=== PATIENT | female | born 1995 | race African-American/Black ===

== ENCOUNTER 2017-04-16 17:36 | Emergency (ER) | payer OTHER ==
[2017-04-16 17:57] VITALS: BP 131/89; PULSE 70; TEMP 98.4
--- NOTE | 2017-04-16 18:37 | PDOC ---
History of Present Illness - General History Source: Patient Exam Limitations: No Limitations - History of Present Illness Initial Comments: 04/16/17 19:38 The patient is 21 year old female, with significant past medical history of recurrent yeast infections, who presents to the emergency room with vaginal discharge and intermittent pelvic pain. The patient states that the vaginal discharge is white. She notes that she has frequent yeast infections and her ENVIRONMENTAL ENGINEERING AIDE has told her it is because her pH is off balance. She was concerned today because she was spotting, which is not typical of her yeast infections. Her LMP was 03/29/17. She is sexually active, but does not use any form of control including condoms. Denies fever, chills, nausea, vomiting. Denies abdominal pain. Allergies: none Surgical Hx: tonsillectomy Social: no alcohol use. No drug use. No tobacco use. ENVIRONMENTAL ENGINEERING AIDE: Dr. Mills <Lyn Baer - Last Filed: 04/16/17 19:38> <Monica Pizarro - Last Filed: 04/16/17 20:47> - General Chief Complaint: Vaginal Sxs Stated Complaint: abd pain Time Seen by Provider: 04/16/17 17:51 Past History <Lyn Baer - Last Filed: 04/16/17 19:38> - Past Medical History Thyroid Disease: No - Psycho/Social/Smoking Cessation Hx Anxiety: No Suicidal Ideation: No Smoking History: Never smoked Have you smoked in the past 12 months: No Information on smoking cessation initiated: No Hx Alcohol Use: No Drug/Substance Use Hx: No Substance Use Type: None <Monica Pizarro - Last Filed: 04/16/17 20:47> - Past Medical History Allergies/Adverse Reactions: Allergies Allergy/AdvReac Type Severity Reaction Status Date / Time No Known Allergies Allergy Verified 04/16/17 17:56 Home Medications: Ambulatory Orders Nitrofurantoin Monohyd/M-Cryst [Macrobid -] 100 mg PO BID #14 capsule 04/16/17 Review of Systems - Review of Systems Able to Perform ROS?: Yes Comments:: 04/16/17 19:38 CONSTITUTIONAL: Absent: fever, no chills, no fatigue EYES: Absent: visual changes ENT: Absent: ear pain, no sore throat CARDIOVASCULAR: Absent: chest pain, no palpitations RESPIRATORY: Absent: cough, no SOB GI: Absent: no nausea, no vomiting, no constipation, no diarrhea GENITOURINARY: Present: +vaginal discharge, vaginal spotting, intermittent pelvic pain Absent: dysuria, no frequency, no hematuria MUSCULOSKELETAL: Absent: back pain, no arthralgia, no myalgia SKIN: Absent: rash NEURO: Absent: headache <KeyurLyn - Last Filed: 04/16/17 19:38> *Physical Exam - Vital Signs Last Vital Signs Temp Pulse Resp BP Pulse Ox 98.4 F 70 18 131/89 100 04/16/17 17:40 04/16/17 17:40 04/16/17 17:40 04/16/17 17:40 04/16/17 17:40 - Physical Exam Comments: 04/16/17 19:39 GENERAL: Well-appearing, well-nourished. No apparent distress. HEENT: Normocephalic, atraumatic. PERRL, EOM intact. CARDIOVASCULAR: Normal S1, S2. Regular rate and rhythm. PULMONARY: Clear to auscultation bilaterally. ABDOMEN: Soft, non-distended, non-tender. EXTREMITIES: Normal ROM in all four extremities. No gross deformities. SKIN: Warm, dry. No rash NEUROLOGICAL: No focal neurological deficits. <GustaboarthurLyn - Last Filed: 04/16/17 19:38> - Vital Signs Last Vital Signs Temp Pulse Resp BP Pulse Ox 98.4 F 70 18 131/89 100 04/16/17 17:40 04/16/17 17:40 04/16/17 17:40 04/16/17 17:40 04/16/17 17:40 <Monica Pizarro - Last Filed: 04/16/17 20:47> ED Treatment Course - ADDITIONAL ORDERS Additional order review: Laboratory Results 04/16/17 04/16/17 18:59 18:41 Urine Color Yellow Urine Appearance Cloudy Urine pH 7.0 Urine Protein Negative Urine Glucose (UA) Negative Urine Ketones Negative Urine Blood 1+ H Urine Nitrite Negative Urine Bilirubin Negative Urine Urobilinogen Negative Ur Leukocyte Esterase 3+ H Urine HCG, Qual Negative <KeyurLyn - Last Filed: 04/16/17 19:38> *DC/Admit/Observation/Transfer - Attestations Scribe Attestion: 04/16/17 19:39 Documentation prepared by LEENA Macdonald, acting as medical records coder for Monica Pizarro MD. <Lyn Baer - Last Filed: 04/16/17 19:38> <Monica Pizarro - Last Filed: 04/16/17 20:47> Diagnosis at time of Disposition: Urinary tract infection Qualifiers: Urinary tract infection type: site unspecified Hematuria presence: without hematuria Qualified Code(s): N39.0 - Urinary tract infection, site not specified - Discharge Dispostion Disposition: HOME Condition at time of disposition: Stable - Prescriptions Prescriptions: Nitrofurantoin Monohyd/M-Cryst [Macrobid -] 100 mg PO BID #14 capsule - Patient Instructions Printed Discharge Instructions: DI for Urinary Tract Infection (UTI) Additional Instructions: please worm picker your medications at [facility] pharmacy
[2017-04-16 19:22] LABS: URINE APPEARANCE CLOUDY; URINE BILIRUBIN NEGATIVE (NEGATIVE); URINE COLOR YELLOW; URINE GLUCOSE (UA) NEGATIVE (NEGATIVE); URINE KETONE NEGATIVE (NEGATIVE); URINE NITRITE NEGATIVE (NEGATIVE); URINE PROTEIN NEGATIVE (NEGATIVE); URINE UROBILINOGEN NEGATIVE E.U./dl (0.2-1.0)
[2017-04-16 19:23] LABS: URINE BLOOD 1+ (NEGATIVE); URINE LEUK ESTERASE 3+ (NEGATIVE)
[2017-04-16 19:25] LABS: URINE BACTERIA RARE /hpf (NONE SEEN); URINE MUCUS RARE; URINE RBC 18 /hpf (0-3); URINE WBC 147 /hpf (3-5)
[2017-04-16] MEDS ORDERED: NITROFURANTOIN MACROCRYSTAL 50 MG CAPSULE (FP) PO SCH (20:15)
[2017-04-16] MEDS ORDERED: PHENAZOPYRIDINE HCL 100 MG TABLET (FP) PO ONE (20:29)
[2017-04-16] MEDS ORDERED: IBUPROFEN 600 MG TABLET (FP) PO ONE ×2 (20:30→20:31)
[2017-04-16] MEDS ORDERED: NITROFURANTOIN MACROCRYSTAL 50 MG CAPSULE (FP) ONE (20:31)
[2017-04-16] MEDS ORDERED: PHENAZOPYRIDINE HCL 100 MG TABLET (FP) ONE ×2 (20:31→20:33)
[2017-04-16] MEDS ORDERED: FLUCONAZOLE 100 MG TABLET (UD) PO ONE (20:46)
[2017-04-16] MEDS ORDERED: FLUCONAZOLE 100 MG TABLET (UD) ONE (20:51)
== END 2017-04-16 20:55 | disposition home or self-care (01) ==
LOC: JER 17:36
DX: N39.0 Urinary tract infection, site not specified (principal)
CPT/HCPCS: 81003; 81015; 84703; 99283-25

== ENCOUNTER 2017-04-18 18:21 | Emergency (ER) | payer OTHER ==
[2017-04-18 18:28] VITALS: BP 116/72; PULSE 84; TEMP 98.2; BMI 23.3
--- NOTE | 2017-04-18 19:00 | PDOC ---
History of Present Illness - General History Source: Patient, Parent(s), Old Records Exam Limitations: No Limitations - History of Present Illness Initial Comments: 04/18/17 19:01 The patient is a 21 year old female with a significant past medical history of recurrent yeast infections, who presents to the emergency department today for further evaluation of vaginal discharge for 5 days and dysuria for 3 days. The patient states that on Monday she had clear vaginal discharge which she notes is normal to her previous yeast infections. On Monday the patient began to experience dysuria with associated spotting, itching, and burning sensation internally and externally. On Monday she presented to [facility], was diagnosed with a UTI, and sent home with antibiotics. The patient reports compliance with antibiotics but denies any alleviation of symptoms. She states that she feels like her symptoms have worsened since her initially ED visit. She states that her burning is exacerbated when wiping after urination or toweling off after shower. She denies any alleviating factors. The patient denies fever, chills, and sweats. The patient denies nausea, vomiting, and diarrhea. The patient denies chest pain, abdominal pain, and shortness of breath. PAST MEDICAL HISTORY: UTI, Yeast infections PAST SURGICAL HISTORY: Tonsillectomy FAMILY HISTORY: No pertinent history reported SOCIAL HISTORY: None reported ALLERGIES: None MEDICATIONS: Recently placed on antibiotic cycle but unsure of names and dosages <Aron Lopez - Last Filed: 04/18/17 19:01> - General History Source: Patient Exam Limitations: No Limitations <Edwige Bazzi - Last Filed: 04/18/17 19:13> - General Chief Complaint: Urinary Problem Stated Complaint: URINARY TRACT BURNING Time Seen by Provider: 04/18/17 18:23 Past History <Aron Lopez - Last Filed: 04/18/17 19:01> - Past Medical History Thyroid Disease: No - Psycho/Social/Smoking Cessation Hx Anxiety: No Suicidal Ideation: No Smoking History: Never smoked Have you smoked in the past 12 months: No Information on smoking cessation initiated: No Hx Alcohol Use: No Drug/Substance Use Hx: No Substance Use Type: None <Edwige Bazzi - Last Filed: 04/18/17 19:13> - Past Medical History Allergies/Adverse Reactions: Allergies Allergy/AdvReac Type Severity Reaction Status Date / Time No Known Allergies Allergy Verified 04/18/17 18:23 Home Medications: Ambulatory Orders Nitrofurantoin Monohyd/M-Cryst [Macrobid -] 100 mg PO BID #14 capsule 04/16/17 Metronidazole [Flagyl -] 500 mg PO BID #14 tablet 04/18/17 Phenazopyridine HCl [Pyridium] 100 mg PO BID #6 tablet 04/18/17 Review of Systems - Review of Systems Able to Perform ROS?: Yes Comments:: 04/18/17 19:01 GENERAL/CONSTITUTIONAL: No: fever, chills, weakness, loss of appetite. HEAD, EYES, EARS, NOSE AND THROAT: No: change in vision, ear pain, discharge, sore throat, throat swelling. CARDIOVASCULAR: No: chest pain, lightheadedness, palpitations, syncope RESPIRATORY: No: cough, shortness of breath, wheezing, hemoptysis, stridor. GASTROINTESTINAL: No: nausea, vomiting, abdominal cramping, diarrhea, rectal bleeding, constipation. GENITOURINARY: (+) Dysuria, itching, burning, vaginal discharge. No: hematuria, frequency, urgency, flank pain. MUSCULOSKELETAL: No: back pain, neck pain, joint pain, muscle swelling or pain SKIN: No: lesions, pallor, rash or easy bruising. NEUROLOGIC: No: headache, vertigo, paresthesias, weakness ENDOCRINE: No: unexplained weight gain or loss HEMATOLOGIC/LYMPHATIC: No: anemia, easy bleeding, swelling nodes <Aron Lopez - Last Filed: 04/18/17 19:01> *Physical Exam - Vital Signs Last Vital Signs Temp Pulse Resp BP Pulse Ox 98.2 F 84 18 116/72 99 04/18/17 18:21 04/18/17 18:21 04/18/17 18:21 04/18/17 18:21 04/18/17 18:21 - Physical Exam Comments: 04/18/17 19:02 GENERAL: The patient is in no acute distress. HEAD: Normal with no signs of trauma. EYES: PERRLA, EOMI, sclera anicteric, conjunctiva clear. ENT: Ears normal, nares patent, oropharynx clear without exudates. Moist mucous membranes. NECK: Normal range of motion, supple without lymphadenopathy, JVD, or masses. LUNGS: Breath sounds equal, clear to auscultation bilaterally. No wheezes, and no crackles. HEART:Regular rate and rhythm, normal S1 and S2 without murmur, rub or gallop. ABDOMEN: Soft, nontender, normoactive bowel sounds. No guarding, no rebound. EXTREMITIES: Normal range of motion, no edema. No clubbing or cyanosis. No erythema, or tenderness. VAGINAL: (+) Moderate volume of cream colored thin vaginal discharge. no CMT. NEUROLOGICAL: Cranial nerves II through XII grossly intact. Normal speech. No focal neurological deficits. MUSCULOSKELETAL: Back nontender to palpation, no CVA tenderness SKIN: Warm, Dry, normal turgor, no rashes or lesions noted. <Aron Lopez - Last Filed: 04/18/17 19:01> - Vital Signs Last Vital Signs Temp Pulse Resp BP Pulse Ox 98.2 F 84 18 116/72 99 04/18/17 18:21 04/18/17 18:21 04/18/17 18:21 04/18/17 18:21 04/18/17 18:21 <Edwige Bazzi - Last Filed: 04/18/17 19:13> Medical Decision Making - Medical Decision Making 04/18/17 19:00 A portion of this note was documented by scribe services under my direction. I have reviewed the details of the note, within reason, and agree with the documentation with the following case summary and management plan written by me. Nursing documentation reviewed and incorporated into medical decision making 04/18/17 19:03 21 yo F presenting to the ER again for vaginal pain, pelvic pain, burning on urination Symptoms began 4 days ago Seen at OSH where Macrobid was started Pt is concerned because she has had a large volume of vaginal discharge which is abnodmal for her No fevers, no chills No flank pain 04/18/17 19:03 On examination: no abd tenderness (+) cream, yellow discharge, moderate volume Bimanual examination: no CMT, no adnexal tenderness UA, Urine Culture pending Sent GC/Chlamydia ? [place] Will start Flagyl Will add pyridium Will ask pt to continue antibiotics pending Urine culture Clinical impression: UTI, Vaginitis 04/18/17 19:10 <Edwige Bazzi - Last Filed: 04/18/17 19:13> *DC/Admit/Observation/Transfer - Attestations Scribe Attestion: 04/18/17 19:02 Documentation prepared by Aron Lopez, acting as medical claims manager for Edwige Bazzi MD. <Aron Lopez - Last Filed: 04/18/17 19:01> - Discharge Dispostion Admit: No <Edwige Bazzi - Last Filed: 04/18/17 19:13> Diagnosis at time of Disposition: UTI (urinary tract infection) Qualifiers: Urinary tract infection type: acute cystitis Hematuria presence: with hematuria Qualified Code(s): N30.01 - Acute cystitis with hematuria Vaginitis Qualifiers: Chronicity: acute Qualified Code(s): N76.0 - Acute vaginitis - Discharge Dispostion Disposition: HOME Condition at time of disposition: Stable - Prescriptions Prescriptions: Metronidazole [Flagyl -] 500 mg PO BID #14 tablet Phenazopyridine HCl [Pyridium] 100 mg PO BID #6 tablet - Patient Instructions Printed Discharge Instructions: DI for Vaginal Discharge, DI for Urinary Tract Infection (UTI) Additional Instructions: Thank you for coming back to the ER today Please take medications as prescribed Please continue antibiotic you were given 2 days ago I have added an additional antibiotic Please call the ER on Saturday 04/21 between 7 am and 7 pm ([phone]) for your results Please monitor yourself for fevers or chills, flank pain, any new symptoms
[2017-04-18 19:07] LABS: PH,URINE 7.5 (4.5-8); URINE BILIRUBIN Negative (NEGATIVE); URINE BLOOD Trace-intact (NEGATIVE); URINE GLUCOSE (UA) Negative (NEGATIVE); URINE KETONE Trace (NEGATIVE); URINE NITRITE Negative (NEGATIVE); URINE UROBILINOGEN 2.0 E.U/dl (0.2-1.0)
[2017-04-18 19:09] LABS: URINE COLOR YELLOW; URINE LEUK ESTERASE 2+ (NEGATIVE); URINE PROTEIN 1+ (NEGATIVE)
[2017-04-18 19:17] LABS: URINE APPEARANCE SL CLOUDY
[2017-04-18 19:18] LABS: URINE BACTERIA FEW /hpf (NEGATIVE)
== END 2017-04-18 19:22 | disposition home or self-care (01) ==
LOC: FER 18:21
DX: N30.01 Acute cystitis with hematuria (principal); N76.0 Acute vaginitis
CPT/HCPCS: 36415; 81003; 81015; 84703; 87070; 87077; 87086; 87205; 87491; 87591; 99283-25

== ENCOUNTER 2017-11-14 09:55 | Emergency (ER) | payer OTHER ==
[2017-11-14 10:06] VITALS: BP 115/78; PULSE 102; TEMP 99; BMI 19.5
--- NOTE | 2017-11-14 10:16 | PDOC ---
History of Present Illness - General Chief Complaint: Respiratory Stated Complaint: COUGH Time Seen by Provider: 11/14/17 10:07 History Source: Patient Exam Limitations: No Limitations - History of Present Illness Initial Comments: 22 yo F no significant PMH presents with cough, fever, chills, body aches for the past 3 days. She states she recently came back from a trip to [place], + sick contacts on her trip. She has been taking theraflu with some relief of the fever and chills, but nothing has been helping the cough. Cough is dry and occurs in spells. It kept her up all night. Last dose of cold medicine last night. Past History - Past Medical History Allergies/Adverse Reactions: Allergies Allergy/AdvReac Type Severity Reaction Status Date / Time No Known Allergies Allergy Verified 11/14/17 09:59 Home Medications: Ambulatory Orders D-Methorphan/PE/Acetaminophen [Theraflu Expressmax Cold-Cough] 245.5 ml PO ASDIR 11/14/17 Guaifenesin AC [Robitussin AC -] 5 ml PO QID PRN #60 ml MDD 20 mL 11/14/17 COPD: No Thyroid Disease: No Other medical history: DENIES - Suicide/Smoking/Psychosocial Hx Smoking History: Never smoked Have you smoked in the past 12 months: No Hx Alcohol Use: No Drug/Substance Use Hx: No Substance Use Type: None Review of Systems - Review of Systems Able to Perform ROS?: Yes Comments:: GENERAL/CONSTITUTIONAL: +Fever/chills. No weakness. HEAD, EYES, EARS, NOSE AND THROAT: No change in vision. No ear pain or discharge. +Sore throat. CARDIOVASCULAR: No chest pain or shortness of breath. RESPIRATORY: +Cough. No wheezing or hemoptysis. GASTROINTESTINAL: No nausea, vomiting, diarrhea or constipation. GENITOURINARY: No dysuria, frequency, or change in urination. MUSCULOSKELETAL: No joint or muscle swelling. No neck or back pain. +Diffuse body aches. SKIN: No rash NEUROLOGIC: No headache, vertigo, loss of consciousness, or change in strength/ sensation. ENDOCRINE: No increased thirst. No abnormal weight change. HEMATOLOGIC/LYMPHATIC: No anemia, easy bleeding, or history of blood clots. ALLERGIC/IMMUNOLOGIC: No hives or skin allergy. *Physical Exam - Vital Signs Last Vital Signs Temp Pulse Resp BP Pulse Ox 99 F 102 H 20 115/78 98 11/14/17 09:55 11/14/17 09:55 11/14/17 09:55 11/14/17 09:55 11/14/17 09:55 - Physical Exam Comments: GENERAL: Awake, alert, and fully oriented, in no acute distress HEAD: No signs of trauma EYES: PERRLA, EOMI, sclera anicteric, conjunctiva clear ENT: Auricles normal inspection, hearing grossly normal, nares patent, oropharynx clear without exudates. Moist mucosa. NECK: Normal ROM, supple, no JVD or masses. +Anterior cervical lymphadenopathy. LUNGS: Breath sounds equal, clear to auscultation bilaterally. No wheezes, and no crackles. Intermittent episodes of dry cough. HEART: Mild tachycardia with regular rhythm, normal S1 and S2, no murmurs, rubs or gallops ABDOMEN: Soft, nontender, normoactive bowel sounds. No guarding, no rebound. No masses EXTREMITIES: Normal range of motion, no edema. No clubbing or cyanosis. No cords, erythema, or tenderness NEUROLOGICAL: Cranial nerves II through XII grossly intact. Normal speech, normal gait SKIN: Warm, Dry, normal turgor, no rashes or lesions noted. Medical Decision Making - Medical Decision Making 11/14/17 10:35 Viral URI. Will treat with neb for bronchospasm, robitussin AC, and antipyretics. Will not test for flu as she is out of the window for tamiflu. Stable for DC home. 11/14/17 11:51 Cough has improved with neb and robitussin. Stable for DC home. *DC/Admit/Observation/Transfer Diagnosis at time of Disposition: Upper respiratory infection Qualifiers: URI type: unspecified URI Qualified Code(s): J06.9 - Acute upper respiratory infection, unspecified - Discharge Dispostion Disposition: HOME Condition at time of disposition: Improved Admit: No - Prescriptions Prescriptions: Guaifenesin AC [Robitussin AC -] 5 ml PO QID PRN #60 ml MDD 20 mL PRN Reason: Cough - Referrals - Patient Instructions Printed Discharge Instructions: DI for Viral Upper Respiratory Infection -- Adult - Post Discharge Activity
[2017-11-14] MEDS ORDERED: guaiFENesin/CODEINE 10 ML UNIT-DOSE CUPS PO ONE (10:29)
[2017-11-14] MEDS ORDERED: ALBUTEROL SO4 0.083% IH SOL 2.5 MG/3 ML VIAL.NEB. NEB ONE ×3 (10:29→10:49)
[2017-11-14] MEDS ORDERED: guaiFENesin/CODEINE 10 ML UNIT-DOSE CUPS ONE (10:30)
[2017-11-14] MEDS ORDERED: IBUPROFEN 600 MG TABLET (FP) PO ONE ×2 (11:11→11:14)
== END 2017-11-14 12:06 | disposition home or self-care (01) ==
LOC: FER 09:55
PROC: 3E0337Z Introduction of Electrolytic and Water Balance Substance into Peripheral Vein, Percutaneous Approach (ICD-10-PCS; principal; 2017-11-14)
DX: J06.9 Acute upper respiratory infection, unspecified (principal)
CPT/HCPCS: 84703; 94640; 99283-25

== ENCOUNTER 2018-10-27 15:03 | Emergency (ER) | payer OTHER ==
--- NOTE | 2018-10-27 15:12 | PDOC ---
History of Present Illness - General Chief Complaint: Vaginal Sxs Stated Complaint: VAGINAL ITCHING Time Seen by Provider: 10/27/18 15:06 History Source: Patient Exam Limitations: No Limitations - History of Present Illness Initial Comments: 10/27/18 15:06 22 YOF with h/o frequent yeast infections who p/w 2-3 days worsening vaginal itching/burning without relief from OTC Monostat which she inserted yesterday. She recently switched body soaps and believes this resulted in initial irritations, and is concerned for yeast infection. She normally uses sensitive skin soap at her residence in [place], but she is visiting her mother's home where she does not have this soap. She denies any f/c/n/v/d/c, dysuria, abdominal pain, or other symptoms. She does have a current sexual partner but uses condoms. She does have h/o chlamydia a year ago and was treated, and her partner was treated. She does request GC/chlamydia test. Past History - Past Medical History Allergies/Adverse Reactions: Allergies Allergy/AdvReac Type Severity Reaction Status Date / Time No Known Allergies Allergy Verified 10/27/18 15:05 Home Medications: Ambulatory Orders Cephalexin [Keflex] 500 mg PO BID #14 capsule 10/27/18 COPD: No Thyroid Disease: No - Suicide/Smoking/Psychosocial Hx Smoking History: Never smoked Have you smoked in the past 12 months: No Hx Alcohol Use: No Drug/Substance Use Hx: No Substance Use Type: None Review of Systems - Review of Systems Able to Perform ROS?: Yes Comments:: 10/27/18 16:19 GEN: no fever, chills, generalized weakness, malaise, unintentional weight change, loss of appetite, or difficulty sleeping HEENT: no ear pain, congestion, sore throat, rhinorrhea, nosebleed, vision change, or eye pain CV: no chest pain, palpitations, syncope, edema, or exercise intolerance RESP: no cough, wheezing, or SOB GI: no nausea, vomiting, diarrhea, constipation, black/bloody stool, abdominal pain, or appetite change : vaginal burning/itching/discharge, no dysuria, hematuria, frequency, incontinence, bleeding, or retention MSK: no weakness, joint swelling, limping, joint pain, or muscle pain NEURO: no headaches, seizures, numbness, tingling, focal weakness, or head trauma PSYCH: no insomnia, behavior change, suicidality, homicidality, or substance use SKIN: no jaundice, rashes, cuts, bruises, scars, or lesions *Physical Exam - Vital Signs Initial Vital Signs Temp Pulse Resp BP Pulse Ox 97.7 F 64 20 116/82 100 10/27/18 15:05 10/27/18 15:05 10/27/18 15:05 10/27/18 15:05 10/27/18 15:05 GENERAL: nontoxic and well-appearing young adult female, nourished, A/Ox4, no acute distress, speaking in full sentences, answers questions appropriately HEENT: PERRLA, EOMI, moist mucous membranes, no posterior pharyngeal erythema, no tonsillar swelling or exudates, no cervical lymphadenopathy NECK: no midline ttp, no spinal stepoff or deformity, full ROM, supple LUNGS/RESPIRATORY: no respiratory distress, normal and symmetric chest movements during respirations GI/ABDOMEN: symmetric appearance, normoactive bowel sounds, soft, no tenderness to palpation, no midline pulsatile masses, no palpated organomegaly : externally normal, no skin changes, no lesions; internal exam with moderate white cottage cheesy discharge, no area of tenderness, no cervical irritation grossly, os closed, no bleeding, Aptima cervical swab sent BACK: no midline ttp or stepoff or deformity of thoracic or lumbar spine EXTREMITIES: distal pulses 2+, warm and well-perfused, no LE edema SKIN: warm and dry, no pallor, no jaundice, no bruising, no rash, no skin breakdown, no cuts, no lesions NEUROLOGICAL: GCS 15, CN II-XII grossly intact, ambulating with normal gait, moving all extremities, no facial droop Medical Decision Making - Medical Decision Making 10/27/18 15:10 Adult female Pt p/w vaginal burning/itching/discharge similar to multiple prior yeast infections. Initial Vital Signs Temp Pulse Resp BP Pulse Ox 97.7 F 64 20 116/82 100 10/27/18 15:05 10/27/18 15:05 10/27/18 15:05 10/27/18 15:05 10/27/18 15:05 Exam: As noted in Physical Exam section. DDX IBNLT: very likely vaginal candidiasis, less likely other vaginal infection , contact dermatitis, UTI/pyelonephritis, PID, TOA, cervicitis, etc [place] ordered: Fluconazole PO pending hCG Laboratory Tests 10/27/18 16:13 Urine Color Yellow Urine Appearance Cloudy Urine pH 7.0 Ur Specific [place] 1.025 Urine Protein 1+ H Urine Glucose (UA) Negative Urine Ketones Negative Urine Blood Trace-lysed H Urine Nitrite Negative Urine Bilirubin Negative Urine Urobilinogen 1.0 Ur Leukocyte Esterase 3+ H Urine RBC 2-5 Urine WBC 10-20 Ur Epithelial Cells 2+ Amorphous Urates 1+ Urine Bacteria 1+ Urine HCG, Qual Negative F/u note has been placed for GC/Chlamydia results to be reported to the patient. Reassessment: repeat exam benign. On last reassessment her exam is benign, belly nontender. She is appropriate for discharge with close outpatient follow up. She is comfortable with this plan and will follow up with her primary care provider or PNEUMATIC TUBE REPAIRER this week. E-Rx are sent for Keflex and Fluconazole and patient is counseled, received first dose here in the ED. Specific return precautions are discussed and she will come back to the ER if necessary. *DC/Admit/Observation/Transfer Diagnosis at time of Disposition: Vulvovaginal candidiasis UTI (urinary tract infection) Qualifiers: Urinary tract infection type: acute cystitis Hematuria presence: without hematuria Qualified Code(s): N30.00 - Acute cystitis without hematuria - Discharge Dispostion Disposition: HOME Condition at time of disposition: Stable Decision to Admit order: No - Prescriptions Prescriptions: Cephalexin [Keflex] 500 mg PO BID #14 capsule - Referrals Referrals: [facility] [place] [facility] [place] [Provider Group] - Patient Instructions Printed Discharge Instructions: DI for Vaginal Yeast Infection, DI for Urinary Tract Infection (UTI) Additional Instructions: You were seen in the ER for a yeast infection. We did an exam, laboratory work on your urine, and gave you a dose of antifungal here. We also found some possible evidence of a urinary tract infection and gave you your first dose of antibiotic here. After our assessment, we believe you are not having a medical emergency and you are safe to go home. Please picker the fluconazole pill and the Keflex antibiotic prescription from your pharmacy (we are sending prescriptions for both). Take the Keflex antibiotic as prescribed and finish the whole course as directed, whether or not you feel better. If you have continued symptoms in 72 hours, take the fluconazole pill. Please follow up with your primary care provider(s) in the next 1-3 days. Call their clinic [facility] , tell them you were seen in the ER, and tell them you need an appointment. Also follow up with your PNEUMATIC TUBE REPAIRER doctor. Please come back to the ER at any time, 24 hours a day, for any new or worsening symptoms, like vaginal or pelvic pain, increasing discharge, high fever, or other symptoms. If you are having severe or life threatening symptoms, or symptoms that make it unsafe to drive or have someone drive you, please call 911. - Post Discharge Activity
--- NOTE | 2018-10-27 15:13 | PDOC ---
Attending Attestation - Resident Resident Name: KnightClara - ED Attending Attestation I have performed the following: I have examined & evaluated the patient, The case was reviewed & discussed with the resident, I agree w/resident's findings & plan, Exceptions are as noted - HPI HPI: 10/27/18 16:40 22 yo female with vaginal discharge and itching. Switched soaps recently. Hx of recurrent yeast infections and increased discharge secondary to soap exposure. Uses sensitive soap in college. Used monostat yesterday without relief. No dysuria. scant amount of bleeding today. No pelvic pain. No f/c. No abd pain. No n/v/d. Hx of chlamydia in the past and asking for STI testing today. - Physicial Exam PE: 10/27/18 16:43 Gen: aaox3, nad abd: soft, nt/nd +bs gu: external genitalia normal, +white cheesy discharge, no bleeding, os closed - Medical Decision Making 10/27/18 15:12 I, Dr. Jenn Steiner, DO, attest that this document has been prepared under my direction and personally reviewed by me in its entirety. I further attest, that it accurately reflects all work, treatment, procedures and medical decision -making performed by me. 10/27/18 16:44 a/p: 22yo female with vaginal itching and discharge -consistent with a candidal infection -will check upreg -will give fluconazole and then a fluconazole in 72 hours if symptoms dont' improve will send gc/chl - pending culture -answered all questions 10/27/18 16:47 discussed soap use- hypoallergenic and fragrance free dreft 10/27/18 16:48 ua +3+ leuks 10/27/18 17:06 pt also with a UTI preg negative will treat with keflex and fluconazole stable for d/c to home
[2018-10-27 15:55] VITALS: BP 116/82; PULSE 64; TEMP 97.7; BMI 19.5
[2018-10-27 16:37] LABS: HCG,QUALITATIVE URINE Negative
[2018-10-27 16:42] LABS: URINE APPEARANCE Cloudy; URINE BILIRUBIN Negative (NEGATIVE); URINE COLOR Yellow; URINE GLUCOSE (UA) Negative (NEGATIVE); URINE KETONE Negative (NEGATIVE); URINE LEUK ESTERASE 3+ (NEGATIVE); URINE NITRITE Negative (NEGATIVE); URINE PROTEIN 1+ (NEGATIVE)
[2018-10-27] MEDS ORDERED: FLUCONAZOLE 50 MG TABLET PO ONE (16:44)
[2018-10-27] MEDS ORDERED: FLUCONAZOLE 150 MG TABLET PO ONE (16:48)
[2018-10-27 16:54] LABS: AMORP URATES 1+ /hpf (NONE SEEN); EPI CELLS 2+ /HPF; URINE BACTERIA 1+ /hpf (NEGATIVE)
[2018-10-27] MEDS ORDERED: CEPHALEXIN MONOHYDRATE 500 MG CAPSULE (UD) PO ONE (17:05)
[2018-10-27] MEDS ORDERED: CEPHALEXIN MONOHYDRATE 500 MG CAPSULE (UD) ONE (17:13)
== END 2018-10-27 17:16 | disposition home or self-care (01) ==
LOC: FER 15:03
DX: B37.3 Candidiasis of vulva and vagina (principal); N30.00 Acute cystitis without hematuria
CPT/HCPCS: 36415; 81003; 81015; 84703; 87491; 87591; 99281-25

== ENCOUNTER 2019-11-08 05:07 | Emergency (ER) | payer OTHER ==
--- NOTE | 2019-11-08 05:09 | PDOC ---
History of Present Illness - General Chief Complaint: Vaginal Sxs Stated Complaint: VAGINAL PAIN Time Seen by Provider: 11/08/19 05:08 History Source: Patient Exam Limitations: No Limitations - History of Present Illness Initial Comments: 11/08/19 05:09 Ms. Yoder is a 24 yo F who presents to the ER with a complaint of vaginal irritation The patient has had a history of almost monthly either yeast infectionr or bacterial vaginosis. Pt reports that her vaginal symptoms began approximately 3 to 4 days ago They significantly worsened yesterday She was seen at the urgent care yesterday morning and was prescribed Flagyl and Diflucan (she believes). She has started to take both medcations. She awoke early this morning, unable to sleep due to vaginal irritation and pain No fevers or chills She has noted severe burning pain, itching She states that her irritation is exacerbated when wiping after urination or toweling off after shower. She denies any alleviating factors. Only change to her regimen is she stopped using her soap The patient denies fever, chills, and sweats. The patient denies nausea, vomiting, and diarrhea. The patient denies chest pain, abdominal pain, and shortness of breath. PAST MEDICAL HISTORY: UTI, Yeast infections PAST SURGICAL HISTORY: Tonsillectomy FAMILY HISTORY: No pertinent history reported SOCIAL HISTORY: None reported ALLERGIES: None MEDICATIONS: Started on Flagyl and fluconazole Review of Systems GENERAL/CONSTITUTIONAL: No: fever, chills, weakness, loss of appetite. HEAD, EYES, EARS, NOSE AND THROAT: No: change in vision, ear pain, discharge, sore throat, throat swelling. CARDIOVASCULAR: No: chest pain, lightheadedness, palpitations, syncope RESPIRATORY: No: cough, shortness of breath, wheezing, hemoptysis, stridor. GASTROINTESTINAL: No: nausea, vomiting, abdominal cramping, diarrhea, rectal bleeding, constipation. GENITOURINARY: No: dysuria, hematuria, frequency, urgency, flank pain. MUSCULOSKELETAL: No: back pain, neck pain, joint pain, muscle swelling or pain SKIN: No: lesions, pallor, rash or easy bruising. NEUROLOGIC: No: headache, vertigo, paresthesias, weakness ENDOCRINE: No: unexplained weight gain or loss HEMATOLOGIC/LYMPHATIC: No: anemia, easy bleeding, swelling nodes Physical Exam GENERAL: The patient is in no acute distress, tearful on examination. HEAD: Normal EYES: PERRLA, EOMI, sclera anicteric, conjunctiva clear. ENT: Moist mucous membranes. NECK: Normal range of motion, supple LUNGS: Breath sounds equal, clear to auscultation bilaterally. No wheezes, and no crackles. HEART:Regular rate and rhythm, normal S1 and S2 without murmur, rub or gallop. ABDOMEN: Soft, nontender, normoactive bowel sounds. No guarding, no rebound. PELVIC: swollen labia minora, dried cracked skin, no erythema, no skin lesions, (+) white discharge EXTREMITIES: Normal range of motion NEUROLOGICAL: Cranial nerves II through XII grossly intact. Normal speech. No focal neurological deficits. MUSCULOSKELETAL: Back non-tender to palpation, no CVA tenderness SKIN: as above 11/08/19 05:13 11/08/19 06:13 Is this a multiple visit Asthma Patient?: No Past History - Past Medical History Allergies/Adverse Reactions: Allergies Allergy/AdvReac Type Severity Reaction Status Date / Time No Known Allergies Allergy Verified 10/27/18 15:05 Home Medications: Ambulatory Orders Azithromycin [Zithromax 1gm Ananth -] 1 gm PO ONCE #1 packet 11/11/19 COPD: No Thyroid Disease: No - Reproductive History (#): 1 Para: 0 - Psycho Social/Smoking Cessation Hx Smoking History: Never smoked Have you smoked in the past 12 months: No Hx Alcohol Use: No Drug/Substance Use Hx: No Substance Use Type: None Medical Decision Making - Medical Decision Making 11/08/19 06:19 24 yo F presenting to the ER with vaginal pain, pelvic pain, burning Symptoms began 3 - 4 days ago Seen at Urgent Care today where Flagyl and Diflucan were started No fevers, no chills No flank pain On examination: no abd tenderness (+) cream, yellow discharge, moderate volume Bimanual examination: no CMT, no adnexal tenderness UA, Urine Culture pending Sent GC/Chlamydia Clinical impression: Vaginitis Discharge - Discharge Information Problems reviewed: Yes Clinical Impression/Diagnosis: Vaginitis Qualifiers: Chronicity: subacute Qualified Code(s): N76.1 - Subacute and chronic vaginitis Condition: Stable Disposition: HOME - Admission No - Follow up/Referral Referrals: Hollie Flowers MD [Staff Physician] - Haydee Vargas MD [Staff Physician] - Radha Sosa DO [Staff Physician] - - Patient Discharge Instructions Patient Printed Discharge Instructions: DI for Vaginal Yeast Infection, DI for Bacterial Vaginosis, DI for Vaginal Discharge Additional Instructions: Ms Yoder Thank you for coming in to the Er today PLEASE call the zipper slide attacher today for an appointment If you can't get to see one of the [facility] automatic screwmaker[facility] ! Please continue taking the antibiotics you were prescribed Please use motrin for pain Please monitor yourself for fevers, chills Please call for your UA results - [phone] consider doing some research into vaginal boric acid suppositories (check [employer]) - Post Discharge Activity Work/Back to School Note: Back to Work
[2019-11-08 05:18] VITALS: BP 128/90; PULSE 81; TEMP 97.8; BMI 19.3
[2019-11-08] MEDS ORDERED: IBUPROFEN 600 MG TABLET (FP) PO ONE ×2 (05:43)
[2019-11-08 09:58] LABS: EPITHELIAL CELLS FEW /hpf
== END 2019-11-08 06:40 | disposition home or self-care (01) ==
LOC: FER 05:07
DX: N76.1 Subacute and chronic vaginitis (principal); A56.02 Chlamydial vulvovaginitis
CPT/HCPCS: 36415; 81003; 81015; 81025; 87070; 87077; 87086; 87205; 87491; 87591; 99282-25

== ENCOUNTER → 2023-01-12 | Day surgery (SDC) | payer OTHER | END | disposition home or self-care (01) | LOC: JRADIR 10:51 | PROVIDERS: ATTEND Nurse Practitioner Adult Health | PROC: 0G9G3ZX Drainage of Left Thyroid Gland Lobe, Percutaneous Approach, Diagnostic (ICD-10-PCS; principal; 2023-01-12) | DX: E04.1 Nontoxic single thyroid nodule (principal) | CPT/HCPCS: 10005; 76942; 88173; 88305-TC ==

== ENCOUNTER 2024-09-02 04:00 | Day surgery (SDC) | payer OTHER ==
[2024-09-02] MEDS ORDERED: BENZOIN/ALOE VERA/STORAX/TOLU 58 ML BOTTLE ONE (10:19)
[2024-09-02] MEDS ORDERED: PROPOFOL 20 ML ONE ×2 (12:04→12:42)
[2024-09-02] MEDS ORDERED: MIDAZOLAM HCL 2 MG/2 ML SINGLE DOSE VIAL ONE (12:04)
[2024-09-02] MEDS ORDERED: SUCCINYLCHOLINE CHLORIDE 200 MG/10 ML SYRINGE ONE (12:04)
[2024-09-02] MEDS ORDERED: LIDOCAINE HCL/PF 2% SDV 5ML VIAL ONE (12:05)
[2024-09-02] MEDS ORDERED: HYDROmorphone HCl 2 MG/ML VIAL ONE (12:23)
[2024-09-02] MEDS: BENZOIN/ALOE VERA/STORAX/TOLU 58 ML BOTTLE TP ONE ×2 (13:29→13:33)
[2024-09-02] MEDS ORDERED: ONDANSETRON 4 MG/2 ML VIAL IVPUSH PRN (14:19)
[2024-09-02] MEDS ORDERED: oxyCODONE HCL 5 MG TABLET PO PRN (14:19)
[2024-09-02 16:41] VITALS: RESP 16
[2024-09-02 17:17] VITALS: BP 116/71; PULSE 61; TEMP 97.4
== END 2024-09-02 17:23 | disposition home or self-care (01) ==
LOC: JASU-SURG 04:00
PROVIDERS: ATTEND Otolaryngology
PROC: 0GTG0ZZ Resection of Left Thyroid Gland Lobe, Open Approach (ICD-10-PCS; principal; 2024-09-02 12:00)
DX: D34 Benign neoplasm of thyroid gland (principal)
CPT/HCPCS: 81025; 86850; 86900; 86901; 88307-TC; 94760